=== PATIENT | male | born 1970 | race Caucasian/White ===

== ENCOUNTER 2022-03-23 16:47 | Emergency (ER) | payer MEDICAID ==
[~2022-03-23] VITALS: Ht 172.7 cm; Wt 80.0 kg
[2022-03-23 16:52] VITALS: BP 131/62
[2022-03-23] MEDS ORDERED: ACETAMINOPHEN 325MG TABLET PO STA (16:58)
[2022-03-23] MEDS ORDERED: ALBUTEROL (0.083%) 2.5MG/3ML NEB HHN ONE (17:00)
[2022-03-23] MEDS ORDERED: SODIUM CHLORIDE 0.9% 1,000 ML IV ONE (17:00)
[2022-03-23] MEDS ORDERED: ACETAMINOPHEN 325MG TABLET PO NR (18:35)
[2022-03-23] MEDS ORDERED: ALBUTEROL (0.083%) 2.5MG/3ML NEB HHN NR (18:37)
[2022-03-23] MEDS ORDERED: DOXYCYCLINE HYCLATE 100MG CAPSULE PO ONE (19:15)
[2022-03-23 19:23] LABS: HEMATOCRIT. 39.7 % (42.0-52.0); HEMOGLOBIN. 13.8 g/dL (14.0-18.0); MEAN CORPUSCULAR HEMOGLOBIN 33.8 pg (28.0-32.0); MEAN CORPUSCULAR VOLUME 97.1 fL (80.0-94.0); MEAN PLATELET VOLUME 10.3 fl (7.4-10.4); PLATELET 122 x1000/uL (130-400); RED BLOOD CELL COUNT 4.09 mill/uL (4.7-6.1); RED CELL DISTRIBUTION WIDTH 12.4 % (11.6-14.6)
[2022-03-23 19:25] LABS: CHLORIDE 101 mEq/L (98-107)
[2022-03-23 20:20] LABS: PLATELET ESTIMATE SLIGHTLY DECREASED
[2022-03-23] MEDS ORDERED: MED4 MT (21:01)
[2022-03-23] MEDS ORDERED: DOXY-244 MT (21:01)
[2022-03-23] MEDS ORDERED: IBUP-2029 MT (21:01)
[2022-03-23] MEDS ORDERED: ALBU6.7H9 INH (21:01)
== END 2022-03-23 21:00 | disposition home or self-care (01) ==
LOC: ER 16:47
DX: J18.9 Pneumonia, unspecified organism (principal); Z20.822 Contact with and (suspected) exposure to COVID-19
CPT/HCPCS: 36415; 71045; 80053; 85025; 87426; 94640; 99284; J7030; Z7610